=== PATIENT | female | born 1975 ===

== ENCOUNTER 2016-07-08 17:54 | Emergency (ER) | payer OTHER, SELFPAY ==
[2016-07-08 18:10] VITALS: BP 120/72; RESP 17; TEMP 98.7; O2SAT 99
--- NOTE | 2016-07-08 18:37 | ED PDOC ---
HPI: General Adult Time Seen by Provider: 07/08/16 18:27 Chief Complaint (Nursing): Headache Chief Complaint (Provider): flu-like symptoms History Per: Patient History/Exam Limitations: no limitations Onset/Duration Of Symptoms: Hrs (9x hours) Severity: Moderate Additional Complaint(s): 41 year old female patient with no pertinent medical history presents to the ED with complaints of flu like symptoms that started today approximately 9x hours prior to arrival. She reports having a fever, chills, headache, lower back pain , right thigh pain, and nasal congestion. She denies having any other medical complaints. PMD: Librado Petersen MD Past Medical History Reviewed: Historical Data, Nursing Documentation, Vital Signs Vital Signs: Last Vital Signs Temp 98.7 F 07/08/16 18:06 Pulse 83 07/08/16 18:43 Resp 17 07/08/16 18:06 BP 120/72 07/08/16 18:06 Pulse Ox 99 07/08/16 18:43 - Medical History PMH: Gall Bladder Disease - Surgical History Surgical History: Cholecystectomy - Family History Family History: States: Unknown Family Hx - Social History Alcohol: None Drugs: Denies - Home Medications Home Medications: Ambulatory Orders Medication Instructions Recorded Amoxicillin/Clavulanate Pota 1 tab PO BID #14 tab 10/27/13 [Augmentin 875 mg-125 mg] Guaifenesin/Pseudoephedrne HCl 1 tab PO DAILY PRN #30 ter 10/27/13 [Mucinex D 600 mg-60 mg] Amoxicillin/Clavulanate [Augmentin 1 tab PO BID 10 Days 05/08/15 875 MG-125 MG] Cetirizine HCl [Zyrtec] 10 mg PO DAILY #15 tab.rapdis 07/08/16 Fluticasone Propionate [Flonase] 2 spr IN DAILY #1 bottle 07/08/16 - Allergies Allergies/Adverse Reactions: Allergies Allergy/AdvReac Type Severity Reaction Status Date / Time No Known Allergies Allergy Verified 07/08/16 18:06 Review of Systems ROS Statement: Except As Marked, All Systems Reviewed And Found Negative Constitutional: Positive for: Fever, Chills ENT: Positive for: Nose Congestion Musculoskeletal: Positive for: Back Pain (lower back), Leg Pain (right thigh) Neurological: Positive for: Headache Physical Exam - Reviewed Nursing Documentation Reviewed: Yes Vital Signs Reviewed: Yes - Physical Exam Appears: Positive for: Well, Non-toxic, No Acute Distress Head Exam: Positive for: ATRAUMATIC, NORMOCEPHALIC Skin: Positive for: Normal Color, Warm, Dry Eye Exam: Positive for: Normal appearance ENT: Positive for: Normal ENT Inspection, Pharynx Is (clear) Neck: Positive for: Normal Cardiovascular/Chest: Positive for: Regular Rate, Rhythm Respiratory: Positive for: Normal Breath Sounds. Negative for: Respiratory Distress Gastrointestinal/Abdominal: Positive for: Normal Exam, Soft. Negative for: Tenderness Back: Positive for: Normal Inspection. Negative for: L CVA Tenderness, R CVA Tenderness, Vertebral Tenderness Extremity: Positive for: Normal ROM. Negative for: Tenderness, Swelling Neurologic/Psych: Positive for: Alert, Oriented (3x) - ECG ECG: Positive for: Interpreted By Me, Viewed By Me ECG Rhythm: Positive for: Sinus Rhythm (normal sinus rhythm at 83 bpm. ). Negative for: ST/T Changes (no acute changes) Rate: 83 (normal) O2 Sat by Pulse Oximetry: 99 (RA) Pulse Ox Interpretation: Normal - Progress ED Course And Treament: influenza a/b neg Medical Decision Making Medical Decision Makin:27 Initial impression: 41 year old patient with flu like symptoms. Initial plan: * influenza AB * EKG * reevaluation Scribe Attestation: Documented by Danielle Drew, acting as a scribe for Scott Pedroza PA-C. Provider Scribe Attestation: All medical record entries made by the Scribe were at my direction and personally dictated by me. I have reviewed the chart and agree that the record accurately reflects my personal performance of the history, physical exam, medical decision making, and the department course for this patient. I have also personally directed, reviewed, and agree with the discharge instructions and disposition. Disposition - Clinical Impression Clinical Impression: Headache, Seasonal allergies - Patient ED Disposition Is Patient to be Admitted: No - Disposition Referrals: [facility] [place] [Outside] Disposition: Routine/Home Disposition Time: 19:49 Condition: FAIR Prescriptions: Cetirizine HCl [Zyrtec] 10 mg PO DAILY #15 tab.rapdis Fluticasone Propionate [Flonase] 2 spr IN DAILY #1 bottle Instructions: Allergic Rhinitis (ED) Print Language: YEMENI
[2016-07-08 18:44] VITALS: PULSE 83
== END 2016-07-08 20:11 | disposition home or self-care (01) ==
LOC: H.ER 17:54
DX: R51 Headache (principal); J30.2 Other seasonal allergic rhinitis

== ENCOUNTER 2016-11-28 11:28 | Emergency (ER) | payer OTHER ==
[2016-11-28 11:40] VITALS: BP 105/56; PULSE 68; RESP 20; TEMP 98.2; O2SAT 99
[2016-11-28] MEDS ORDERED: Naproxen 500 MG TAB PO STA (12:48)
--- NOTE | 2016-11-28 12:56 | ED PDOC ---
HPI: Headache Time Seen by Provider: 11/28/16 12:11 Chief Complaint (Nursing): Headache Chief Complaint (Provider): Headache History Per: Patient History/Exam Limitations: no limitations, language barrier (translated by Daniel ) Onset/Duration Of Symptoms: Days (x1) Current Symptoms Are (Timing): Still Present Pain Scale Rating Of: 8 Preceeding Symptoms: Visual Disturbances Associated Symptoms: denies: Nausea, Vomiting Additional Complaint(s): Lita Riddle is a 41 year old female, with no past medical history, who presents to the emergency department complaining of frontal headache associated with vision change onset since yesterday. Patient also reports hip and neck pain. Patient states she took advil last night with some relief, but hasn't taken anything today. She denies any nausea or vomit. Patient was previously seen in the ED in June for similar symptoms. No further medical complaints. PMD: None provided. Past Medical History Reviewed: Historical Data, Nursing Documentation, Vital Signs Vital Signs: Last Vital Signs Temp 98.2 F 11/28/16 11:39 Pulse 68 11/28/16 11:39 Resp 20 11/28/16 11:39 BP 105/56 L 11/28/16 11:39 Pulse Ox 99 11/28/16 11:39 - Medical History PMH: Gall Bladder Disease - Surgical History Surgical History: Cholecystectomy - Family History Family History: States: Unknown Family Hx - Social History Current smoker - smoking cessation education provided: No Alcohol: None Drugs: Denies - Home Medications Home Medications: Ambulatory Orders Medication Instructions Recorded Amoxicillin/Clavulanate Pota 1 tab PO BID #14 tab 10/27/13 [Augmentin 875 mg-125 mg] Guaifenesin/Pseudoephedrne HCl 1 tab PO DAILY PRN #30 ter 10/27/13 [Mucinex D 600 mg-60 mg] Amoxicillin/Clavulanate [Augmentin 1 tab PO BID 10 Days tab 05/08/15 875 MG-125 MG] Cetirizine HCl [Zyrtec] 10 mg PO DAILY #15 tab.rapdis 07/08/16 Fluticasone Propionate [Flonase] 2 spr IN DAILY #1 bottle 07/08/16 - Allergies Allergies/Adverse Reactions: Allergies Allergy/AdvReac Type Severity Reaction Status Date / Time No Known Allergies Allergy Verified 07/08/16 18:06 Review of Systems ROS Statement: Except As Marked, All Systems Reviewed And Found Negative Eyes: Positive for: Vision Change Gastrointestinal: Negative for: Nausea, Vomiting Musculoskeletal: Positive for: Neck Pain, Other (Hip pain) Neurological: Positive for: Headache (frontal) Physical Exam - Reviewed Nursing Documentation Reviewed: Yes Vital Signs Reviewed: Yes - Physical Exam Appears: Positive for: Well, Non-toxic, No Acute Distress Head Exam: Positive for: ATRAUMATIC, NORMAL INSPECTION, NORMOCEPHALIC Skin: Positive for: Normal Color, Warm, DRY Eye Exam: Positive for: EOMI, Normal appearance, PERRL Neck: Positive for: Normal, Painless ROM, Supple Cardiovascular/Chest: Positive for: Regular Rate, Rhythm. Negative for: Murmur Respiratory: Positive for: Normal Breath Sounds. Negative for: Respiratory Distress Gastrointestinal/Abdominal: Positive for: Normal Exam, Bowel Sounds, Soft. Negative for: Tenderness Back: Positive for: Normal Inspection (No midline tenderness). Negative for: L CVA Tenderness, R CVA Tenderness Extremity: Positive for: Normal ROM. Negative for: Pedal Edema, Deformity Neurologic/Psych: Positive for: Alert, Oriented. Negative for: Motor/Sensory Deficits - ECG O2 Sat by Pulse Oximetry: 99 (RA) Pulse Ox Interpretation: Normal Medical Decision Making Medical Decision Making: Initial Impression: Headache Initial Plan: --Head w/o contrast [CT] --Naprosyn Tab 500 mg PO --reevaluation Accession No. : [id number] Patient Name / ID : PRATEEK ROBB / [id number] Exam Date : 11/28/2016 13:36:52 ( Approved ) Study Comment : Sex / Age : F / 41Y Creator : Geoff Loera MD Dictator : Geoff Loera MD Spring Tacker : Director Work : Geoff oLera MD Approver2 : Report Date : 11/28/2016 14:04:50 My Comment : PROCEDURE: CT HEAD WITHOUT CONTRAST. HISTORY: SERRATO COMPARISON: None available. TECHNIQUE: Axial computed tomography images were obtained through the head/brain without intravenous contrast. Radiation dose: Total exam DLP = 783.18 mGy-cm. This CT exam was performed using one or more of the following dose reduction techniques: Automated exposure control, adjustment of the mA and/or kV according to patient size, and/or use of iterative reconstruction technique. FINDINGS: HEMORRHAGE: No intracranial hemorrhage. BRAIN: No mass effect or edema. No atrophy or chronic microvascular ischemic changes. VENTRICLES: Unremarkable. No hydrocephalus. CALVARIUM: Unremarkable. PARANASAL SINUSES: Unremarkable as visualized. No significant inflammatory changes. MASTOID AIR CELLS: Unremarkable as visualized. No inflammatory changes. OTHER FINDINGS: None. IMPRESSION: Normal CT of the Head. No intracranial mass, hemorrhage or evidence of acute infarct. Scribe Attestation: Documented by Gerson Benitez, acting as a scribe for Rosalba Ramirez MD Provider Scribe Attestation: All medical record entries made by the Scribe were at my direction and personally dictated by me. I have reviewed the chart and agree that the record accurately reflects my personal performance of the history, physical exam, medical decision making, and the department course for this patient. I have also personally directed, reviewed, and agree with the discharge instructions and disposition. Disposition - Clinical Impression Clinical Impression: Headache - Disposition Referrals: [facility] [Outside] Disposition: Routine/Home Disposition Time: 14:08 Condition: IMPROVED Instructions: General Headache (ED) Forms: [facility] (Central African) Print Language: AZERI
[2016-11-28] MEDS ORDERED: Naproxen 500 MG TAB PO ONE (13:20)
--- NOTE | 2016-11-28 14:06 | CT ---
PROCEDURE: CT HEAD WITHOUT CONTRAST. HISTORY: SERRATO COMPARISON: None available. TECHNIQUE: Axial computed tomography images were obtained through the head/brain without intravenous contrast. Radiation dose: Total exam DLP = 783.18 mGy-cm. This CT exam was performed using one or more of the following dose reduction techniques: Automated exposure control, adjustment of the mA and/or kV according to patient size, and/or use of iterative reconstruction technique. FINDINGS: HEMORRHAGE: No intracranial hemorrhage. BRAIN: No mass effect or edema. No atrophy or chronic microvascular ischemic changes. VENTRICLES: Unremarkable. No hydrocephalus. CALVARIUM: Unremarkable. PARANASAL SINUSES: Unremarkable as visualized. No significant inflammatory changes. MASTOID AIR CELLS: Unremarkable as visualized. No inflammatory changes. OTHER FINDINGS: None. IMPRESSION: Normal CT of the Head. No intracranial mass, hemorrhage or evidence of acute infarct.
== END 2016-11-28 14:57 | disposition home or self-care (01) ==
LOC: H.ER 11:28
DX: R51 Headache (principal)

== ENCOUNTER 2017-02-09 17:10 | Emergency (ER) | payer OTHER ==
[2017-02-09 17:24] VITALS: BP 104/58; PULSE 71; RESP 16; TEMP 96.7; O2SAT 100
[2017-02-09] MEDS ORDERED: RABIES VACCINE 2.5 Units PDR IM ONE (17:44)
[2017-02-09] MEDS ORDERED: Rabies Immune Globulin 150 INTLU/ML VIAL IM STA (17:44)
--- NOTE | 2017-02-09 17:54 | ED PDOC ---
HPI: Skin/Bite Injury Time Seen by Provider: 02/09/17 17:21 Chief Complaint (Nursing): Bite Chief Complaint (Provider): cat bite History Per: Patient History/Exam Limitations: no limitations Additional Complaint(s): 41yo F in ED for eval of cat bite sustained yesterday from a stray cat-was scratched at b/l legs front and back and now with mild abdominal pain dry mouth and reddness and tenderness around site of scratches. no fever no body aches no chills no vomiting. - Animal Bite Description Of The Attack: Approached Animal Description Of The Animal: Stray Animal Appears: Unknown Animal's Immunization Status: Unknown Animal Control Notified: Yes Past Medical History Reviewed: Historical Data, Nursing Documentation, Vital Signs Vital Signs: Last Vital Signs Temp 96.7 F L 02/09/17 17:22 Pulse 71 02/09/17 17:22 Resp 16 02/09/17 17:22 BP 104/58 L 02/09/17 17:22 Pulse Ox 100 02/09/17 19:39 - Medical History PMH: No Chronic Diseases, Gall Bladder Disease - Surgical History Surgical History: Cholecystectomy - Family History Family History: States: Unknown Family Hx - Home Medications Home Medications: Ambulatory Orders Medication Instructions Recorded Amoxicillin/Clavulanate Pota 1 tab PO BID #14 tab 10/27/13 [Augmentin 875 mg-125 mg] Guaifenesin/Pseudoephedrne HCl 1 tab PO DAILY PRN #30 ter 10/27/13 [Mucinex D 600 mg-60 mg] Amoxicillin/Clavulanate [Augmentin 1 tab PO BID 10 Days tab 05/08/15 875 MG-125 MG] Cetirizine HCl [Zyrtec] 10 mg PO DAILY #15 tab.rapdis 07/08/16 Fluticasone Propionate [Flonase] 2 spr IN DAILY #1 bottle 07/08/16 Naproxen [Naprosyn] 500 mg PO BID PRN #15 tablet 11/28/16 Amoxicillin/Clavulanate [Augmentin 1 tab PO BID #14 tab 02/09/17 875 MG-125 MG] - Allergies Allergies/Adverse Reactions: Allergies Allergy/AdvReac Type Severity Reaction Status Date / Time No Known Allergies Allergy Verified 07/08/16 18:06 Review of Systems ROS Statement: Except As Marked, All Systems Reviewed And Found Negative Constitutional: Negative for: Fever, Chills Gastrointestinal: Positive for: Abdominal Pain Musculoskeletal: Positive for: Leg Pain Skin: Positive for: Rash Physical Exam - Reviewed Nursing Documentation Reviewed: Yes Vital Signs Reviewed: Yes - Physical Exam Appears: Positive for: Well, Non-toxic, No Acute Distress Skin: Positive for: Normal Color, Warm, DRY Eye Exam: Positive for: Normal appearance, EOMI, PERRL Cardiovascular/Chest: Positive for: Regular Rate, Rhythm Respiratory: Positive for: CNT, Normal Breath Sounds Extremity: Positive for: Other (b/l legs: scracthes noted with surronding erythema. no signes of swelling warmth drainage of pus or swelling to legs. ) Neurologic/Psych: Positive for: Alert, Oriented (x3) - ECG O2 Sat by Pulse Oximetry: 100 (RA) Pulse Ox Interpretation: Normal - Progress ED Course And Treament: pt will receive: Orders Category Date Time Status Rabies Immune Globulin [Imogam] Med 02/09/17 17:44 Stat 1,079.54 intlu IM STAT STA Rabies Vaccine [Rabavert Vaccine Inj] Med 02/09/17 17:44 Once 2.5 units IM .ONCE ONE Tetanus/Reduced Dipht/Acell Pe [Adacel] Med 02/09/17 17:54 Once 0.5 ml IM .ONCE ONE Medical Decision Making Medical Decision Making: Time: 1743 Initial impression: Cat bite Initial plan: --Rabies Immune Globulin 1,079.54 intlu IM -Inj inserted at all sites of wound and remaining 3cc was inserted into left deltoid. --Rabies Vaccine 2.5 units IM -- Tetanus 0.5 ml IM --Reevaluation and disposition advised strongly to ise take motrin and rest. advised arms will hurt she will feel malaise flu like symptoms. Scribe Attestation: Documented by Cary Kirby, acting as a scribe for Barbara Woody PA-C Provider Scribe Attestation: All medical record entries made by the Scribe were at my direction and personally dictated by me. I have reviewed the chart and agree that the record accurately reflects my personal performance of the history, physical exam, medical decision making, and the department course for this patient. I have also personally directed, reviewed, and agree with the discharge instructions and disposition. Disposition - Clinical Impression Clinical Impression: Animal bite wound, Cat scratch - Patient ED Disposition Is Patient to be Admitted: No Counseled Patient/Family Regarding: Studies Performed, Diagnosis, Need For Followup, Rx Given - Disposition Disposition: Routine/Home Disposition Time: 19:49 Condition: STABLE Additional Instructions: vaccination schedule: Injection #1: 02/09/17 Injection #2: 02/12/17 Injection #3: 02/16/17 Injection #4: 02/23/17 Prescriptions: Amoxicillin/Clavulanate [Augmentin 875 MG-125 MG] 1 tab PO BID #14 tab Instructions: Rabies Vaccine (By injection), Rabies Immune Globulin (By injection), Rabies (ED), Animal Bite (ED) Print Language: CYMRO
== END 2017-02-09 20:02 | disposition home or self-care (01) ==
LOC: H.ER 17:10
DX: T07.XXXA Unspecified multiple injuries, initial encounter (principal); W55.01XA Bitten by cat, initial encounter; W55.03XA Scratched by cat, initial encounter; Y92.89 Other specified places as the place of occurrence of the external cause

== ENCOUNTER 2017-02-12 16:49 | Emergency (ER) | payer OTHER ==
[2017-02-12 16:54] VITALS: O2SAT 100
[2017-02-12] MEDS ORDERED: RABIES VACCINE 2.5 Units PDR IM ONE (17:37)
--- NOTE | 2017-02-12 18:11 | ED PDOC ---
HPI: General Adult Time Seen by Provider: 02/12/17 17:55 Chief Complaint (Nursing): Rabies Vaccine Series Additional Complaint(s): 41yo F in ED 2nd IM inj of Rabies vaccination-no allergy to rabies IM inj. No nausea or vomiting no swelling at injection site. Pt sustained multiple cat scratches from a stray cat. PT is compliant with Augmentin. Past Medical History Reviewed: Historical Data, Nursing Documentation, Vital Signs Vital Signs: Last Vital Signs Temp 97.5 F L 02/12/17 16:53 Pulse 72 02/12/17 16:53 Resp 16 02/12/17 16:53 BP 105/63 02/12/17 16:53 Pulse Ox 100 02/12/17 18:11 - Medical History PMH: No Chronic Diseases, Gall Bladder Disease - Surgical History Surgical History: Cholecystectomy - Family History Family History: States: Unknown Family Hx - Home Medications Home Medications: Ambulatory Orders Medication Instructions Recorded Amoxicillin/Clavulanate Pota 1 tab PO BID #14 tab 10/27/13 [Augmentin 875 mg-125 mg] Guaifenesin/Pseudoephedrne HCl 1 tab PO DAILY PRN #30 ter 10/27/13 [Mucinex D 600 mg-60 mg] Amoxicillin/Clavulanate [Augmentin 1 tab PO BID 10 Days tab 05/08/15 875 MG-125 MG] Cetirizine HCl [Zyrtec] 10 mg PO DAILY #15 tab.rapdis 07/08/16 Fluticasone Propionate [Flonase] 2 spr IN DAILY #1 bottle 07/08/16 Naproxen [Naprosyn] 500 mg PO BID PRN #15 tablet 11/28/16 Amoxicillin/Clavulanate [Augmentin 1 tab PO BID #14 tab 02/09/17 875 MG-125 MG] - Allergies Allergies/Adverse Reactions: Allergies Allergy/AdvReac Type Severity Reaction Status Date / Time No Known Allergies Allergy Verified 07/08/16 18:06 Review of Systems ROS Statement: Except As Marked, All Systems Reviewed And Found Negative Skin: Negative for: Rash Physical Exam - Reviewed Nursing Documentation Reviewed: Yes Vital Signs Reviewed: Yes - Physical Exam Appears: Positive for: Well, Non-toxic, No Acute Distress Skin: Positive for: Normal Color, Warm, DRY Cardiovascular/Chest: Positive for: Regular Rate, Rhythm Respiratory: Positive for: CNT, Normal Breath Sounds Neurologic/Psych: Positive for: Alert, Oriented - ECG O2 Sat by Pulse Oximetry: 100 - Progress ED Course And Treament: Orders Category Date Time Status Rabies Vaccine [Rabavert Vaccine Inj] Med 02/12/17 17:37 Discontinued 2.5 units IM .ONCE ONE Medical Decision Making Medical Decision Making: Series: Injection #1: 02/09/17 Injection #2: 02/12/17 Injection #3: 02/16/17 Injection #4: 02/23/17 Disposition - Clinical Impression Clinical Impression: Need for rabies vaccination - Patient ED Disposition Is Patient to be Admitted: No - Disposition Disposition: Routine/Home Disposition Time: 18:15 Condition: STABLE Additional Instructions: Injection #1: 02/09/17 Injection #2: 02/12/17 Injection #3: 02/16/17 Injection #4: 02/23/17 Instructions: Rabies (ED) Forms: [employer] (Mohawk)
[2017-02-12 19:01] VITALS: BP 120/78; PULSE 76; RESP 19; TEMP 97.6
== END 2017-02-12 19:01 | disposition home or self-care (01) ==
LOC: H.ER 16:49
DX: Z20.3 Contact with and (suspected) exposure to rabies (principal)

== ENCOUNTER 2017-02-16 16:32 | Emergency (ER) | payer OTHER ==
[2017-02-16] MEDS ORDERED: RABIES VACCINE 2.5 Units PDR IM ONE (16:58)
--- NOTE | 2017-02-16 17:23 | ED PDOC ---
HPI: General Adult Time Seen by Provider: 02/16/17 16:41 Chief Complaint (Nursing): Rabies Vaccine Series Chief Complaint (Provider): Rabies Vaccine Series History Per: Patient History/Exam Limitations: no limitations Additional Complaint(s): 41 y/o female presents to the ED for third rabies vaccine. Denies any further medical complaints. Past Medical History Reviewed: Historical Data, Nursing Documentation, Vital Signs Vital Signs: Last Vital Signs Temp 97.9 F 02/16/17 16:41 Pulse 63 02/16/17 16:41 Resp 18 02/16/17 16:41 BP 109/42 L 02/16/17 16:41 Pulse Ox 99 02/16/17 18:10 - Medical History PMH: Gall Bladder Disease - Surgical History Surgical History: Cholecystectomy - Family History Family History: States: Unknown Family Hx - Social History Current smoker - smoking cessation education provided: No (never smoked) Alcohol: None Drugs: Denies - Home Medications Home Medications: Ambulatory Orders Medication Instructions Recorded Amoxicillin/Clavulanate Pota 1 tab PO BID #14 tab 10/27/13 [Augmentin 875 mg-125 mg] Guaifenesin/Pseudoephedrne HCl 1 tab PO DAILY PRN #30 ter 10/27/13 [Mucinex D 600 mg-60 mg] Amoxicillin/Clavulanate [Augmentin 1 tab PO BID 10 Days tab 05/08/15 875 MG-125 MG] Cetirizine HCl [Zyrtec] 10 mg PO DAILY #15 tab.rapdis 07/08/16 Fluticasone Propionate [Flonase] 2 spr IN DAILY #1 bottle 07/08/16 Naproxen [Naprosyn] 500 mg PO BID PRN #15 tablet 11/28/16 Amoxicillin/Clavulanate [Augmentin 1 tab PO BID #14 tab 02/09/17 875 MG-125 MG] - Allergies Allergies/Adverse Reactions: Allergies Allergy/AdvReac Type Severity Reaction Status Date / Time No Known Allergies Allergy Verified 02/16/17 16:41 Review of Systems ROS Statement: Except As Marked, All Systems Reviewed And Found Negative (As per HPI, otherwise negative) Skin: Positive for: Other (Patient here for third rabies vaccine) Physical Exam - Reviewed Nursing Documentation Reviewed: Yes Vital Signs Reviewed: Yes - Physical Exam Appears: Positive for: Well Skin: Positive for: Normal Color, Warm, Dry, Rash (Abrasions healing on right leg with no surrounding erythema) Eye Exam: Positive for: Normal appearance Neck: Positive for: Normal Respiratory: Negative for: Accessory Muscle Use, Respiratory Distress Neurologic/Psych: Positive for: Alert, Oriented (x3) - ECG O2 Sat by Pulse Oximetry: 99 (RA) Pulse Ox Interpretation: Normal Medical Decision Making Medical Decision Making: Time: 16:58 Plan: Rabies vaccine 2.5 units IM Time: 17:00 Upon provider reevaluation patient is feeling better, is medically stable, and requires no further treatment in the ED at this time. Patient will be discharged Scribe Attestation: Documented by Ernie Pedroza acting as a scribe for YONI Shea. Scribe Attestation: All medical record entries made by the Scribe were at my direction and personally dictated by me. I have reviewed the chart and agree that the record accurately reflects my personal performance of the history, physical exam, medical decision making, and the department course for this patient. I have also personally directed, reviewed, and agree with the discharge instructions and disposition. Disposition - Clinical Impression Clinical Impression: Rabies vaccination - Patient ED Disposition Is Patient to be Admitted: No - Disposition Disposition: Routine/Home Disposition Time: 17:00 Condition: STABLE Instructions: Rabies Vaccine (ED) Forms: [employer] (Senegalese)
[2017-02-16 17:27] VITALS: BP 109/42; PULSE 63; RESP 18; TEMP 97.9; O2SAT 99
== END 2017-02-16 18:12 | disposition home or self-care (01) ==
LOC: H.ER 16:32
DX: Z23 Encounter for immunization (principal)

== ENCOUNTER 2017-02-23 10:17 | Emergency (ER) | payer OTHER ==
[2017-02-23 10:36] VITALS: BP 101/80; PULSE 65; RESP 16; TEMP 97; O2SAT 99
[2017-02-23] MEDS ORDERED: RABIES VACCINE 2.5 Units PDR IM ONE (10:38)
--- NOTE | 2017-02-23 10:48 | ED PDOC ---
HPI: General Adult Time Seen by Provider: 02/23/17 10:47 Chief Complaint (Nursing): Rabies Vaccine Series Chief Complaint (Provider): rabies vaccine History Per: Family (41 y/o female here for rabies vaccine. Is here for 4th vaccine. No reaction to previous injections.) Past Medical History Reviewed: Historical Data, Nursing Documentation, Vital Signs Vital Signs: Last Vital Signs Temp 97.0 F L 02/23/17 10:34 Pulse 65 02/23/17 10:34 Resp 16 02/23/17 10:34 BP 101/80 02/23/17 10:34 Pulse Ox 99 02/23/17 10:48 - Medical History PMH: Gall Bladder Disease - Surgical History Surgical History: Cholecystectomy - Family History Family History: States: Unknown Family Hx - Home Medications Home Medications: Ambulatory Orders Medication Instructions Recorded Amoxicillin/Clavulanate Pota 1 tab PO BID #14 tab 10/27/13 [Augmentin 875 mg-125 mg] Guaifenesin/Pseudoephedrne HCl 1 tab PO DAILY PRN #30 ter 10/27/13 [Mucinex D 600 mg-60 mg] Amoxicillin/Clavulanate [Augmentin 1 tab PO BID 10 Days tab 05/08/15 875 MG-125 MG] Cetirizine HCl [Zyrtec] 10 mg PO DAILY #15 tab.rapdis 07/08/16 Fluticasone Propionate [Flonase] 2 spr IN DAILY #1 bottle 07/08/16 Naproxen [Naprosyn] 500 mg PO BID PRN #15 tablet 11/28/16 Amoxicillin/Clavulanate [Augmentin 1 tab PO BID #14 tab 02/09/17 875 MG-125 MG] - Allergies Allergies/Adverse Reactions: Allergies Allergy/AdvReac Type Severity Reaction Status Date / Time No Known Allergies Allergy Verified 02/23/17 10:34 Review of Systems ROS Statement: Except As Marked, All Systems Reviewed And Found Negative Physical Exam - Reviewed Nursing Documentation Reviewed: Yes Vital Signs Reviewed: Yes - Physical Exam Appears: Positive for: Well, Non-toxic, No Acute Distress Head Exam: Positive for: ATRAUMATIC, NORMAL INSPECTION, NORMOCEPHALIC Skin: Positive for: Normal Color, Warm, DRY Eye Exam: Positive for: EOMI, Normal appearance, PERRL ENT: Positive for: Normal ENT Inspection Neck: Positive for: Normal, Painless ROM Cardiovascular/Chest: Positive for: Regular Rate, Rhythm Respiratory: Positive for: CNT, Normal Breath Sounds Gastrointestinal/Abdominal: Positive for: Normal Exam, Bowel Sounds, Soft Back: Positive for: Normal Inspection Extremity: Positive for: Normal ROM Neurologic/Psych: Positive for: Alert, Oriented - ECG O2 Sat by Pulse Oximetry: 99 - Progress ED Course And Treament: rabies vaccine 2.5 U IM x 1 dose Disposition - Clinical Impression Clinical Impression: Rabies vaccination - Patient ED Disposition Is Patient to be Admitted: No - Disposition Disposition: Routine/Home Disposition Time: 10:40 Condition: FAIR Instructions: Rabies Vaccine (By injection) Forms: [facility] (Romansh)
== END 2017-02-23 12:04 | disposition home or self-care (01) ==
LOC: H.ER 10:17
DX: Z29.14 Encounter for prophylactic rabies immune globulin (principal)

== ENCOUNTER 2018-07-11 19:36 | Emergency (ER) | payer SELFPAY ==
[2018-07-11 19:58] VITALS: RESP 18; O2SAT 99
--- NOTE | 2018-07-11 20:58 | ED PDOC ---
HPI: Back Time Seen by Provider: 07/11/18 20:03 Chief Complaint (Nursing): Back Pain Chief Complaint (Provider): Back Pain History Per: Patient History/Exam Limitations: no limitations Onset/Duration Of Symptoms: Hrs Current Symptoms Are (Timing): Still Present Additional Complaint(s): 43 y/o female with no significant PMHx presents to the ED for evaluation of diffuse low back pain since waking up this morning. Patient reports pain worsens with walking, going from sitting to standing and certain movements. Patient notes of taking Advil at 1:00 PM with mild relief of symptoms. Patient states she has experienced similar pain in the past that had resolved spontaneously. Otherwise: (-) heavy lifting, (-) numbness, (-) tingling, (-) radiation to legs, (-) urinary incontinence, (-) bowel incontinence, (-)hematuria (-) weakness. (- )IVDA (-)malignancy PMD: [facility] ([facility] LNMP: 06/10/2018 Past Medical History Reviewed: Historical Data, Nursing Documentation, Vital Signs Vital Signs: Last Vital Signs Temp 98.3 F 07/11/18 19:52 Pulse 66 07/11/18 19:52 Resp 18 07/11/18 19:52 BP 114/59 L 07/11/18 19:52 Pulse Ox 99 07/11/18 19:52 Primary Care Provider: [facility] - Medical History PMH: Gall Bladder Disease - Surgical History Surgical History: Cholecystectomy - Family History Family History: States: Unknown Family Hx - Home Medications Home Medications: Ambulatory Orders Medication Instructions Recorded Amoxicillin/Clavulanate Pota 1 tab PO BID #14 tab 10/27/13 [Augmentin 875 mg-125 mg] Guaifenesin/Pseudoephedrne HCl 1 tab PO DAILY PRN #30 ter 10/27/13 [Mucinex D 600 mg-60 mg] Amoxicillin/Clavulanate [Augmentin 1 tab PO BID 10 Days tab 05/08/15 875 MG-125 MG] Cetirizine HCl [Zyrtec] 10 mg PO DAILY #15 tab.rapdis 07/08/16 Fluticasone Propionate [Flonase] 2 spr IN DAILY #1 bottle 07/08/16 Naproxen [Naprosyn] 500 mg PO BID PRN #15 tablet 11/28/16 Amoxicillin/Clavulanate [Augmentin 1 tab PO BID #14 tab 02/09/17 875 MG-125 MG] Cyclobenzaprine [Cyclobenzaprine 10 mg PO TID PRN #12 tab 07/11/18 HCl] Naproxen 500 mg PO BID PRN #20 tab 07/11/18 traMADol [Ultram] 50 mg PO TID PRN #9 tab 07/11/18 - Allergies Allergies/Adverse Reactions: Allergies Allergy/AdvReac Type Severity Reaction Status Date / Time No Known Allergies Allergy Verified 02/23/17 10:34 Review of Systems ROS Statement: Except As Marked, All Systems Reviewed And Found Negative Genitourinary Female: Negative for: Incontinence Musculoskeletal: Positive for: Back Pain. Negative for: Leg Pain Neurological: Negative for: Weakness, Numbness Physical Exam - Reviewed Nursing Documentation Reviewed: Yes Vital Signs Reviewed: Yes - Physical Exam Comments: GENERAL APPEARANCE: Patient is well, awake, alert, oriented x 3, in no distress. SKIN: Warm, dry; (-) cyanosis. EYES: (-) conjunctival pallor. ENMT: Mucous membranes moist. NECK: (-) tenderness, (-) stiffness, (-) lymphadenopathy. CHEST AND RESPIRATORY: (-) rales, (-) rhonchi, (-) wheezes; breath sounds equal bilaterally. HEART AND CARDIOVASCULAR: (-) irregularity; (-) murmur, (-) gallop. ABDOMEN AND GI: Soft; (-) tenderness; (-) palpable mass. BACK: (+) mild midline tenderness from L4 to S1, (+) bilateral lumbar muscle tenderness, (-) direct bony tenderness, (-) deformity. Straight leg raising (-) bilaterally. Patient refuses flexion of the back due to pain, otherwise ROM intact. (-)CVAT EXTREMITIES: (-) deformity. Distal pulses good bilaterally. NEURO AND PSYCH: Mental status as above. Intact sensation bilaterally; normal strength in extension of the knees, plantar and dorsiflexion of the toes. 5/5 strength in all extremities (x4). Steady gait. DTRs symmetric. Steady gait - ECG O2 Sat by Pulse Oximetry: 99 (RA) Pulse Ox Interpretation: Normal Medical Decision Making Medical Decision Making: Time: 2010 Impression: Back Pain Plan: -- Lumbar Spine Complete XR -- Flexeril 10 mg PO (pt is not driving home) -- Toradol 30 mg IM -- LS Spine AP/LAT XR Lumbar spine xray reviewed by me - no acute fractures or dislocations, mild DJD L5-s1, mild stool discussed with pt she will be contacted if any discrepancies with radiology read 21:35 on re eval pt reports she has not felt improvement of pain, continues to refuse flexion, will treat with tramadol and lidocaine patch no results in [place] [facility] Rx search for KAYLAN VALDES PA 22:30 on re eval pt reports feeling much better, improved ROM, ambulating with steady gait, neurologically intact Discussed results, diagnosis, treatment, return precautions and f/u with pt who is understanding, in agreement and stable for dc Scribe Attestation: Documented by Monica Villanueva, acting as a scribe forAlexis Ora Decker PA-C. Provider Scribe Attestation: All medical record entries made by the Scribe were at my direction and personally dictated by me. I have reviewed the chart and agree that the record accurately reflects my personal performance of the history, physical exam, medical decision making, and the department course for this patient. I have also personally directed, reviewed, and agree with the discharge instructions and disposition. Disposition - Clinical Impression Clinical Impression: Low back pain, Muscle spasm - Patient ED Disposition Is Patient to be Admitted: No Counseled Patient/Family Regarding: Studies Performed, Diagnosis, Need For Followup, Rx Given - Disposition Referrals: [facility] MD [Family Provider] - Disposition: Routine/Home Disposition Time: 22:34 Condition: IMPROVED Additional Instructions: Thank you for letting us take care of you today. The emergency medical care you received today was directed at your acute symptoms. If you were prescribed any medication, please fill it and take as directed.Do not drink alcohol or drive when taking flexeril or tramadol. Rest, avoid heavy lifting or strenuous activity for one week. Use heating pads and hot showers to soothe your muscles. It may take several days for your symptoms to resolve. Return to the Emergency Department if your symptoms worsen, do not improve, or if you have any other problems. Please contact your doctor in 2 days for re-evaluation and follow up / or call one of the physicians/clinics you have been referred to that are listed on the Patient Visit Information form that is included in your discharge packet. Bring any paperwork you were given at discharge with you along with any medications you are taking to your follow up visit. Our treatment cannot replace ongoing medical care by a primary care provider (PCP) outside of the emergency department. Isabella por dejarnos cuidar de ti hoy. La atencin mdica de emergencia que recibi hoy se dirigi a edyta sntomas agudos. Si le recetaron algn medicamento, llnelo y tmelo segn las indicaciones. No tome alcohol ni maneje cuando tome flexeril y tramadol. Descanse, evite levantar objetos pesados ??o realizar actividades extenuantes shawna janice semana. Use almohadillas trmicas y duchas de santo domingo para calmar edyta msculos. Los sntomas pueden tardar varios peterson en resolverse. Regrese al Departamento de Emergencias si edyta sntomas empeoran, no mejoran o si tiene otros problemas. Comunquese con tran mdico dentro de 2 peterson para janice nueva evaluacin y josé miguel un seguimiento o llame a cheri de los mdicos / clnicas a los que carreon sido referido y que figuran en el formulario de Informacin de visita al paciente que se incluye en tran paquete de gregoria. Lleve todos los documentos que recibi al momento del gregoria junto con los medicamentos que est tomando para tran visita de seguimiento. Nuestro tratamiento no puede reemplazar la atencin mdica continua por parte de un proveedor de atencin primaria (PCP) fuera del departamento de emergencias. Prescriptions: Cyclobenzaprine [Cyclobenzaprine HCl] 10 mg PO TID PRN #12 tab PRN Reason: muscle relaxation Naproxen 500 mg PO BID PRN #20 tab PRN Reason: Pain, Moderate (4-7) traMADol [Ultram] 50 mg PO TID PRN #9 tab PRN Reason: Pain, Severe (8-10) Instructions: Low Back Pain in Adults, Muscle Strain (DC), Back Exercises, Muscle Spasms (DC) Print Language: BELIZEAN - POA Present On Arrival: None
[2018-07-11] MEDS ORDERED: Lidocaine 5% Patch TD STA (21:34)
[2018-07-11] MEDS ORDERED: Lidocaine 5% Patch TD ONE (21:44)
[2018-07-11 22:41] VITALS: BP 114/62; PULSE 78; TEMP 98
--- NOTE | 2018-07-12 17:09 | RAD ---
Date of service: 07/11/2018 PROCEDURE: Radiographs of the Lumbar Spine. HISTORY: pain COMPARISON: No prior. TECHNIQUE: 5 views obtained. FINDINGS: BONES: Normal alignment. No listhesis. No fracture. DISC SPACES: Unremarkable. OTHER FINDINGS: None. IMPRESSION: Unremarkable radiographs of the lumbar spine.
== END 2018-07-11 22:41 | disposition home or self-care (01) ==
LOC: H.ER 19:36
DX: M54.5 Low back pain (principal); M62.838 Other muscle spasm
CPT/HCPCS: 72100; 81025; 96372; 99283; J1885